=== PATIENT | female | born 1960 | race Caucasian/White ===

== ENCOUNTER 2016-10-13 10:41 | Emergency (ER) | payer MEDICARE, OTHER ==
[~2016-10-13] VITALS: Ht 162.6 cm; Wt 109.8 kg
[2016-10-13] MEDS ORDERED: HYDROcodone/APAP 5/325 TABLET ONE (11:38)
[2016-10-13] MEDS ORDERED: FLUO20CA8 PO (11:42)
[2016-10-13] MEDS ORDERED: LEVO88TA4 PO (11:43)
[2016-10-13] MEDS ORDERED: LOVA40TA2 PO (11:43)
[2016-10-13] MEDS ORDERED: INSU100V8 SQ (11:44)
[2016-10-13] MEDS ORDERED: LISI40TA PO (11:44)
[2016-10-13 11:51] LABS: HEMATOCRIT 45.7 % (34.6-47.8); HEMOGLOBIN 15.4 g/dL (11.7-16.4); WHITE BLOOD COUNT 14.1 x10^3/uL (3.4-10)
[2016-10-13] MEDS ORDERED: HYDROcodone/APAP 5/325 TABLET PO ONE (12:00)
[2016-10-13 12:01] LABS: BLOOD UREA NITROGEN 17 mg/dL (7-18)
[2016-10-13] MEDS ORDERED: PHENAZOPYRIDINE 200 MG TABLET ONE (12:19)
[2016-10-13] MEDS ORDERED: ENALAPRILAT 1.25 MG/ML, 2ML IV ONE (13:00)
[2016-10-13] MEDS ORDERED: PHENAZOPYRIDINE 200 MG TABLET PO ONE (13:00)
[2016-10-13] MEDS ORDERED: ENALAPRILAT 1.25 MG/ML, 2ML ONE (13:26)
[2016-10-13] MEDS ORDERED: CEFTRIAXONE PMX 1GM/50ML 50 ML ONE (13:26)
[2016-10-13 13:45] VITALS: BP 145/83
[2016-10-13] MEDS ORDERED: CEFTRIAXONE PMX 1GM/50ML 50 ML IVPB ONE (14:00)
== END 2016-10-13 15:31 | disposition home or self-care (01) ==
LOC: ED 14:41
DX: N12 Tubulo-interstitial nephritis, not specified as acute or chronic (principal); D72.829 Elevated white blood cell count, unspecified; E11.9 Type 2 diabetes mellitus without complications
CPT/HCPCS: 36415; 80048; 81001; 82040; 83605; 85025; 87040; 87077; 87086; 87186; 96365; 99284; J0696